=== PATIENT | male | born 1975 | race Hispanic/Latino ===

== ENCOUNTER 2016-08-22 06:35 | Day surgery (SDC) | payer MEDICAID ==
[2016-08-22 07:51] VITALS: BMI 24.1
[2016-08-22] MEDS ORDERED: Propofol 10 mg/ml Inj (20 ML) ONE (11:12)
[2016-08-22] MEDS ORDERED: Lactated Ringer's 500 ML IV ONE ×2 (11:18)
[2016-08-22] MEDS ORDERED: Simethicone 40 mg/0.6 ml Liquid (30 ml) ONE (11:25)
[2016-08-22] MEDS ORDERED: Lactated Ringer's 500 ML IV SCH (11:45)
[2016-08-22 12:15] VITALS: TEMP 98.4
[2016-08-22 13:13] VITALS: RESP 14; O2SAT 97
[2016-08-22 13:23] VITALS: BP 108/69; PULSE 63
== END 2016-08-22 13:10 | disposition home or self-care (01) ==
LOC: C.ENDO 06:35
PROVIDERS: ATTEND Internal Medicine
DX: R94.5 Abnormal results of liver function studies (principal); K21.9 Gastro-esophageal reflux disease without esophagitis; K64.8 Other hemorrhoids
CPT/HCPCS: 45380; 88305; J2704; J3010; J7120